=== PATIENT | female | born 1960 | race African-American/Black ===

== ENCOUNTER 2022-10-28 13:40 | Emergency (ER) | payer OTHER ==
[~2022-10-28] VITALS: Ht 177.8 cm; Wt 59.0 kg
[2022-10-28 13:47] VITALS: BP 128/68; PULSE 45; RESP 16; TEMP 98.3; O2SAT 100
[2022-10-28] MEDS ORDERED: SODIUM CHLORIDE 0.9% 1,000 ML IV ONE (14:00)
== END 2022-10-28 16:25 | disposition home or self-care (01) ==
LOC: ER 13:55
DX: R40.0 Somnolence (principal); R55 Syncope and collapse
CPT/HCPCS: 99283; 71045; 82962; 93005; J7030